=== PATIENT | male | born 1965 | race Caucasian/White ===

== ENCOUNTER 2016-05-02 00:28 | Emergency (ER) ==
[2016-05-02 00:41] VITALS: BP 180/80; TEMP 98.4; BMI 29.5
[2016-05-02] MEDS ORDERED: PHENERGAN 25 MG/ML VIAL IM STA (01:03)
[2016-05-02] MEDS ORDERED: DILAUDID 2 MG/ML SYRINGE IM STA (01:03)
[2016-05-02] MEDS ORDERED: SODIUM CHLORIDE 1,000 ML IV STA (01:04)
[2016-05-02] MEDS ORDERED: DILAUDID 1 MG/ML SYRINGE IVP PRN (01:15)
[2016-05-02] MEDS ORDERED: PHENERGAN 25 MG/ML VIAL 25 MG in SODIUM CHLORIDE 50 ML IV STA (01:16)
[2016-05-02] MEDS ORDERED: PHENERGAN 25 MG/ML VIAL ONE (01:22)
[2016-05-02] MEDS ORDERED: DILAUDID 1 MG/ML SYRINGE ONE ×2 (01:28→02:59)
[2016-05-02 01:34] LABS: ANION GAP 18.8; BUN/CREATININE RATIO 8.28; CALCIUM 9.9 mg/dL (8.2-10.2); CREATININE 1.57 mg/dL (0.60-1.10); POTASSIUM 3.8 mmol/L (3.5-5.1)
--- NOTE | 2016-05-02 02:42 | CT ---
EXAM: CT scan abdomen pelvis with contrast HISTORY: Trauma COMPARISON: None. FINDINGS: Contiguous axial images obtained from lung bases to the symphysis pubis following unevent ful administration intravenous contrast utilizing 3-mm collimation. Sagittal and coronal reconstruc tions were imaged and reviewed.. The visualized lung bases are clear. The gallbladder is fluid fabio led without cholelithiasis. Mild fatty infiltration is noted throughout the liver. The pancreas, s pleen and adrenal glands have normal enhanced CT appearance. The kidneys excrete contrast normal fa shion bilaterally. Atherosclerotic changes are seen involving the aorta without evidence of aneurys m. There is normal appendix. There is umbilical hernia containing only fat. There is minimal diver ticulosis without diverticulitis. The prostate gland is normal in size. There is no evidence of fr ee fluid. Review of bone windows reveals no evidence of lytic or blastic lesions. There is mild lum bar levoscoliosis. IMPRESSION: Fatty liver. Umbilical hernia containing only fat. Minimal diverticulosis without diverticulitis. ASVD without aneurysm. No acute findings.
--- NOTE | 2016-05-02 02:48 | CT ---
EXAM: CT scan thorax without contrast HISTORY: Trauma COMPARISON: None. FINDINGS: Contiguous axial images obtained through the thorax without contrast utilizing 5-mm colli mation. Sagittal and coronal reconstructions were imaged and reviewed. The thoracic inlet is unrema rkable. There are subcentimeter pretracheal lymph nodes. The heart is normal in size without perica rdial effusion.. The lungs are clear bilaterally.. Bone windows reveals no evidence of lytic or bl astic lesions. There are ventral spondylitic changes seen within the thoracic spine. IMPRESSION: No acute intrathoracic findings.
--- NOTE | 2016-05-02 03:00 | ED.PDOC ---
General ED Provider: Dr. VIKAS NORTON-ER Chief Complaint: Chest Wall Injury/Pain Stated Complaint: i was moving a fridge and it fell on my chest Time Seen by Physician: 00:30 Mode of Arrival: Wheelchair Information Source: Patient Exam Limitations: No limitations Nursing and Triage Documentation Reviewed and Agree: Yes Musculoskeletal Complaint Exam - Back Pain Complaint/Exam Mechanism of Injury: Reports: Trauma Onset/Duration: 2hrs Symptoms Are: Still present Timing: Constant Episodes Lasting: Hours Initial Severity: Mild Current Severity: Mild Location: Reports: Discrete (right chest wall) Character: Reports: Dull, Aching Aggravating: Reports: Movements, Lifting Alleviating: Reports: Position Associated Signs and Symptoms: Denies: Swelling, Redness, Bruising, Fever, Weakness, Numbness, Tingling, Abdominal pain, Flank pain, Bladder incontinence, Bowel incontinence, Weight loss, Pain with weight bearing Cauda Equina Risk Factors: Reports: None Epidural Abcess Risk Factors: Reports: None Related Surgical History: Reports: None Focal Tenderness: Yes Paraspinal Muscle Tenderness: No Paraspinal Muscle Spasm: No Scoliosis: No Lordosis: No Kyphosis: No SLR Test: Right Negative, Left Negative Hip Motion Testing Pain: Right Negative, Left Negative Focal Weakness: Present: None Focal Sensory Loss: Present: None Gait: Present: Normal Differential Diagnoses: Other Review of Systems - Review Of Systems Constitutional: Reports: No symptoms Eyes: Reports: No symptoms Ears, Nose, Mouth, Throat: Reports: No symptoms Respiratory: Reports: No symptoms Cardiac: Reports: Chest pain (chest wall pain) GI: Reports: No symptoms : Reports: No symptoms Musculoskeletal: Reports: No symptoms Skin: Reports: No symptoms Neurological: Reports: No symptoms Endocrine: Reports: No symptoms Hematologic/Lymphatic: Reports: No symptoms All Other Systems: Reviewed and Negative Past Medical History - Past Medical History Endocrine: Reports: Unknown Cardiovascular: Reports: Unknown Respiratory: Reports: Unknown Hematological: Reports: Unknown Gastrointestinal: Reports: Unknown Genitourinary: Reports: Unknown Neuro/Psych: Reports: Unknown Musculoskeletal: Reports: Unknown Cancer: Reports: Unknown - Surgical History General Surgical History: Reports: Unknown - Family History Family History: Reports: Unknown - Social History Smoking Status: Current every day smoker Hx Substance Use: No Alcohol Screening: None - Immunizations Tetanus Shot up to Date: Yes Physical Exam - Physical Exam Appearance: Well-appearing, No pain distress, Well-nourished Pain Distress: Moderate Eyes: DELPHINE, EOMI, Conjunctiva clear ENT: Ears normal, Nose normal, Oropharynx normal Neck: Supple Respiratory: Airway patent, Breath sounds clear, Breath sounds equal, Respirations nonlabored Cardiovascular: RRR, Pulses normal, No rub, No murmur GI/: Soft Musculoskeletal: Normal strength Skin: Warm, Dry, Normal color Neurological: Sensation intact, Motor intact, Reflexes intact, Cranial nerves intact, Alert, Oriented Psychiatric: Affect appropriate Interpretation - Radiology Interpretation Radiology Interpretation By: Radiologist Radiology Results: Negative Exam Interpreted: CT Scan Critical Care Note - Critical Care Note Total Time (mins): 0 Course - Course Hematology/Chemistry: 05/02/16 01:15 Orders, Labs, Meds: Lab Review 05/02/16 01:15 Sodium 140 Potassium 3.8 Chloride 106 Carbon Dioxide 19 L Anion Gap 18.8 BUN 13 Creatinine 1.57 H Estimated GFR (MDRD) 47.00 BUN/Creatinine Ratio 8.28 Glucose 80 Calcium 9.9 Orders Category Date Time Status NPO REMINDER: IMAGING ONCE CARE 05/02/16 01:04 Completed IV [ED IV/MEDIPORT/POWERPORT] .ONCE EMERGENCY 05/02/16 01:03 Active BMP [BASIC METABOLIC PANEL] Stat LAB 05/02/16 01:15 Completed 0.9 % Sodium Chloride [Saline Flush] MEDS 05/02/16 01:03 Ordered 1 syr IVF PRN PRN Hydromorphone HCl [Dilaudid 1 mg/ml Syringe] MEDS 05/02/16 01:15 Ordered 1 mg IVP Q1HR PRN Promethazine HCl [Phenergan 25 mg/ml Vial] MEDS 05/02/16 01:22 Discontinued 25 mg .ROUTE .STK-MED ONE Promethazine HCl [Phenergan 25 mg/ml Vial] 25 mg MEDS 05/02/16 01:16 Discontinued 0.9 % Sodium Chloride [Sodium Chloride] 50 ml IV ONCE Sodium Chloride 0.9% [Sodium Chloride] 1,000 ml MEDS 05/02/16 01:04 Active IV 100 mls/hr CT ABDOMEN/PELVIS W CONTRAST Stat RADS 05/02/16 01:[address] CHEST W/O CONTRAST Stat RADS 05/02/16 01:04 Completed Medications Generic Name Dose Route Start Last Admin Trade Name Freq PRN Reason Stop Dose Admin Hydromorphone HCl 1 mg 05/02/16 01:15 05/02/16 01:34 Dilaudid 1 Mg/Ml Syringe IVP 1 mg Q1HR PRN Administration MODERATE PAIN Sodium Chloride 1,000 mls @ 100 mls/hr 05/02/16 01:04 05/02/16 01:34 Sodium Chloride IV 05/02/16 11:03 100 mls/hr .Q10H STA Administration Sodium Chloride 1 syr 05/02/16 01:03 05/02/16 01:34 Saline Flush IVF 1 syr PRN PRN Administration To flush IV Discontinued Medications Generic Name Dose Route Start Last Admin Trade Name Freq PRN Reason Stop Dose Admin Promethazine HCl 25 mg/ Sodium 51 mls @ 75 mls/hr 05/02/16 01:16 05/02/16 01: 34 Chloride IV 05/02/16 01:56 75 mls/hr ONCE STA Administration Vital Signs: Temp Pulse Resp BP Pulse Ox 05/02/16 00:29 98.4 F 94 H 20 180/80 H 96 Departure - Departure Time of Disposition: 03:00 Disposition: HOME SELF-CARE Discharge Problem: Chest wall pain Instructions: Chest Wall Pain (ED) Condition: Good Pt referred to PMD for follow-up: Yes Additional Instructions: norco 7.5mg q 4hrs prn pain #15--f/u wtih pcp Allergies/Adverse Reactions: Allergies divalproex sodium [From Depakote] Adverse Reaction (Verified 05/27/13 23:06) ketorolac [From Toradol] Adverse Reaction (Verified 05/02/16 00:40) Vomiting pentazocine lactate [From Talwin] Adverse Reaction (Verified 05/27/13 23:06) sumatriptan [From Imitrex] Adverse Reaction (Verified 05/27/13 23:06) sumatriptan succinate [From Imitrex] Adverse Reaction (Verified 05/27/13 23:06) varenicline tartrate [From Chantix] Adverse Reaction (Verified 05/27/13 23:06) Home Medications: Ambulatory Orders Bisoprolol Fumarate/Hctz [Bisoprolol-Hctz 10-6.25 mg Tab] 10 mg PO DAILY Clonidine HCl [Catapres] 0.1 mg PO DAILY 05/27/13 Fluoxetine HCl [Prozac] 20 mg PO TID 05/27/13 Omeprazole [Prilosec] 20 mg PO QDAC 05/27/13 Pravastatin Sodium 10 mg PO DAILY 05/02/16 Tamsulosin HCl [Flomax] 0.4 mg PO DAILY 05/02/16 Disposition Discussed With: Patient
== END 2016-05-02 03:10 | disposition home or self-care (01) ==
LOC: ED 00:28
DX: S29.9XXA Unspecified injury of thorax, initial encounter (principal); R07.89 Other chest pain; F17.210 Nicotine dependence, cigarettes, uncomplicated; W20.8XXA Other cause of strike by thrown, projected or falling object, initial encounter; Z79.899 Other long term (current) drug therapy
CPT/HCPCS: 36415; 80048; 96361; 96365; 96366; 96375; 99284

== ENCOUNTER 2016-05-08 23:47 | Emergency (ER) ==
[2016-05-08 23:47] VITALS: BMI 29.5
[2016-05-09 00:01] VITALS: TEMP 98.9
[2016-05-09] MEDS ORDERED: DEMEROL 50 MG/ML SYRINGE IM STA (00:10)
[2016-05-09] MEDS ORDERED: PHENERGAN 25 MG/ML VIAL 25 MG in SODIUM CHLORIDE 50 ML IV STA (00:10)
[2016-05-09] MEDS ORDERED: PHENERGAN 25 MG/ML VIAL 25 MG in SODIUM CHLORIDE 50 ML IM STA (00:16)
[2016-05-09] MEDS ORDERED: PHENERGAN 25 MG/ML VIAL ONE (00:19)
[2016-05-09] MEDS ORDERED: DILAUDID 1 MG/ML SYRINGE IM STA (01:03)
--- NOTE | 2016-05-09 01:06 | ED.PDOC ---
General ED Provider: Dr. ERIC BAPTISTE Chief Complaint: Back Pain Stated Complaint: Patient was seen recently in the ER after back and chest wall injury while carring a frigde. He had CT of chest and spine that was negative. He Return today with injury to the right chest wall after his dog jumped on him. He tied to go to work [place] the had been told. He states he is now out of his medications as of this morning. Time Seen by Physician: 23:55 Mode of Arrival: Walk-In Information Source: Patient Exam Limitations: No limitations Nursing and Triage Documentation Reviewed and Agree: Yes Musculoskeletal Complaint Exam - Back Pain Complaint/Exam Mechanism of Injury: Reports: Trauma Onset/Duration: 1 days ago Symptoms Are: Still present Timing: Constant Initial Severity: Moderate Current Severity: Severe Character: Reports: Throbbing Aggravating: Reports: Movements, Lifting, Bending Alleviating: Reports: None Associated Signs and Symptoms: Denies: Swelling, Redness, Bruising, Fever, Weakness, Numbness, Tingling, Abdominal pain, Flank pain, Bladder incontinence, Bowel incontinence, Weight loss, Pain with weight bearing TAD Risk Factors: Reports: None AAA Risk Factors: Reports: None Cauda Equina Risk Factors: Reports: None Review of Systems - Review Of Systems Constitutional: Reports: No symptoms Eyes: Reports: No symptoms Ears, Nose, Mouth, Throat: Reports: No symptoms Respiratory: Reports: No symptoms Cardiac: Reports: Chest pain (Left chest wall ) GI: Reports: No symptoms : Reports: No symptoms Musculoskeletal: Reports: Back pain Skin: Reports: No symptoms Neurological: Reports: No symptoms Endocrine: Reports: No symptoms Hematologic/Lymphatic: Reports: No symptoms All Other Systems: Reviewed and Negative Past Medical History - Past Medical History Endocrine: Reports: Unknown Cardiovascular: Reports: Unknown Respiratory: Reports: Unknown Hematological: Reports: Unknown Gastrointestinal: Reports: Unknown Genitourinary: Reports: Unknown Neuro/Psych: Reports: Unknown Musculoskeletal: Reports: Unknown Cancer: Reports: Unknown - Surgical History General Surgical History: Reports: Unknown - Family History Family History: Reports: Unknown - Social History Smoking Status: Current every day smoker Hx Substance Use: No Alcohol Screening: None - Immunizations Tetanus Shot up to Date: Yes Physical Exam - Physical Exam Appearance: Ill-appearing, Obese Ill-appearing: Moderate Pain Distress: Severe Neck: Supple Respiratory: Airway patent, Breath sounds clear, Breath sounds equal, Respirations nonlabored Cardiovascular: RRR, Pulses normal, No rub, No murmur GI/: Soft, Nontender, No masses, Bowel sounds normal, No Organomegaly Musculoskeletal: Normal strength, ROM intact, No edema, No calf tenderness Skin: Warm, Dry, Normal color Neurological: Sensation intact, Motor intact, Reflexes intact, Cranial nerves intact, Alert, Oriented Psychiatric: Anxious Critical Care Note - Critical Care Note Total Time (mins): 0 Course - Course Orders, Labs, Meds: Orders Category Date Time Status Vital signs [ED VITAL SIGNS] .ONCE EMERGENCY 05/09/16 01:10 Active Hydromorphone HCl [Dilaudid 1 mg/ml Syringe] MEDS 05/09/16 01:03 Discontinued 1 mg IM ONCE STA Meperidine HCl/Pf [Demerol 50 mg/ml Syringe] MEDS 05/09/16 00:10 Discontinued 50 mg IM ONCE STA Promethazine HCl [Phenergan 25 mg/ml Vial] MEDS 05/09/16 00:19 Discontinued 25 mg .ROUTE .STK-MED ONE Promethazine HCl [Phenergan 25 mg/ml Vial] 25 mg MEDS 05/09/16 00:16 Discontinued 0.9 % Sodium Chloride [Sodium Chloride] 50 ml IM ONCE Promethazine HCl [Phenergan 25 mg/ml Vial] 25 mg MEDS 05/09/16 00:10 Discontinued 0.9 % Sodium Chloride [Sodium Chloride] 50 ml IV ONCE Medications Discontinued Medications Generic Name Dose Route Start Last Admin Trade Name Freq PRN Reason Stop Dose Admin Hydromorphone HCl 1 mg 05/09/16 01:03 05/09/16 01:23 Dilaudid 1 Mg/Ml Syringe IM 05/09/16 01:04 1 mg ONCE STA Administration Promethazine HCl 25 mg/ Sodium 51 mls @ 75 mls/hr 05/09/16 00:10 05/09/16 00: 32 Chloride IV 05/09/16 00:50 Not Given ONCE STA Promethazine HCl 25 mg/ Sodium 51 mls @ 75 mls/hr 05/09/16 00:16 05/09/16 00: 33 Chloride IM 05/09/16 00:50 Not Given ONCE STA Meperidine HCl 50 mg 05/09/16 00:10 05/09/16 00:27 Demerol 50 Mg/Ml Syringe IM 05/09/16 00:11 50 mg ONCE STA Administration Vital Signs: Temp Pulse Resp BP Pulse Ox 05/09/16 01:51 98.9 F 84 20 174/96 H 05/08/16 23:48 98.9 F 86 20 188/110 H 97 Departure - Departure Time of Disposition: :06 Disposition: HOME SELF-CARE Discharge Problem: Backache, Chest wall injury Instructions: Chest Wall Pain in Children (ED) Condition: Stable Pt referred to PMD for follow-up: Yes Additional Instructions: Follow up with PCP in 3 days Take medications as prescribed. Prescriptions: Hydrocodone/Acetaminophen [[place] 5-325 Tablet] 1 tab PO Q6HR PRN #12 tablet PRN Reason: PAIN Allergies/Adverse Reactions: Allergies divalproex sodium [From Depakote] Adverse Reaction (Verified 05/09/16 00:01) ketorolac [From Toradol] Adverse Reaction (Verified 05/09/16 00:01) Vomiting pentazocine lactate [From Talwin] Adverse Reaction (Verified 05/09/16 00:01) sumatriptan [From Imitrex] Adverse Reaction (Verified 05/09/16 00:01) sumatriptan succinate [From Imitrex] Adverse Reaction (Verified 05/09/16 00:01) varenicline tartrate [From Chantix] Adverse Reaction (Verified 05/09/16 00:01) Home Medications: Ambulatory Orders Bisoprolol Fumarate/Hctz [Bisoprolol-Hctz 10-6.25 mg Tab] 10 mg PO DAILY Clonidine HCl [Catapres] 0.1 mg PO DAILY 05/27/13 Fluoxetine HCl [Prozac] 20 mg PO TID 05/27/13 Omeprazole [Prilosec] 20 mg PO QDAC 05/27/13 Pravastatin Sodium 10 mg PO DAILY 05/02/16 Tamsulosin HCl [Flomax] 0.4 mg PO DAILY 05/02/16 Hydrocodone/Acetaminophen [[place] 5-325 Tablet] 1 tab PO Q6HR PRN #12 tablet 04/26
[2016-05-09 01:52] VITALS: BP 174/96
== END 2016-05-09 01:51 | disposition home or self-care (01) ==
LOC: ED 23:47
DX: S29.9XXA Unspecified injury of thorax, initial encounter (principal); M54.9 Dorsalgia, unspecified; W54.1XXA Struck by dog, initial encounter; F17.210 Nicotine dependence, cigarettes, uncomplicated
CPT/HCPCS: 96372; 99282

== ENCOUNTER 2016-07-30 20:51 | Emergency (ER) ==
[2016-07-30 20:56] VITALS: BP 143/105; TEMP 97.9; BMI 31.0
--- NOTE | 2016-07-30 21:47 | CT ---
EXAM: CT scan head without contrast. HISTORY: Fall COMPARISON: None. TECHNIQUE: Axial scans acquired 5 mm slice thicknesses. FINDINGS: There is no subdural hematoma or intracranial hemorrhage seen. There is no shift of midl ine structures. Duke-white matter differentiation is maintained. Ventricles are normal in size. T he paranasal sinuses and mastoid air cells appear clear. IMPRESSION: No acute intracranial finding. No intracranial hemorrhage, cranial fracture, mass or h ydrocephalus is seen.
--- NOTE | 2016-07-30 21:50 | ED.PDOC ---
General ED Provider: Dr. ERIC BAPTISTE Chief Complaint: Fall Stated Complaint: Patient states he fell out of a 10 foot height landing backwards. Thinks he lost conciousness not sure how long. Time Seen by Physician: 21:47 Mode of Arrival: Walk-In Information Source: Patient Exam Limitations: No limitations Primary Care Provider: GIDEON GLEZ Nursing and Triage Documentation Reviewed and Agree: Yes Review of Systems - Review Of Systems Constitutional: Reports: No symptoms Eyes: Reports: No symptoms Ears, Nose, Mouth, Throat: Reports: No symptoms Respiratory: Reports: No symptoms Cardiac: Reports: No symptoms GI: Reports: No symptoms : Reports: No symptoms Musculoskeletal: Reports: Muscle pain, Neck pain Skin: Reports: Rash (all over for two weeks after exposure to tree sap. ) Neurological: Reports: Anxiety, Headache Endocrine: Reports: No symptoms Hematologic/Lymphatic: Reports: No symptoms All Other Systems: Reviewed and Negative Past Medical History - Past Medical History Previously Healthy: Yes Endocrine: Reports: Unknown Cardiovascular: Reports: Unknown Respiratory: Reports: Unknown Hematological: Reports: Unknown Gastrointestinal: Reports: Unknown Genitourinary: Reports: Unknown Neuro/Psych: Reports: Unknown Musculoskeletal: Reports: Unknown Cancer: Reports: Unknown - Surgical History General Surgical History: Reports: Unknown - Family History Family History: Reports: Unknown - Social History Smoking Status: Current every day smoker Hx Substance Use: No Alcohol Screening: None Physical Exam - Physical Exam Appearance: Ill-appearing, No pain distress, Well-nourished Pain Distress: Moderate Eyes: DELPHINE, EOMI, Conjunctiva clear ENT: Ears normal, Nose normal, Oropharynx normal Respiratory: Airway patent, Breath sounds clear, Breath sounds equal, Respirations nonlabored Cardiovascular: RRR, Pulses normal, No rub, No murmur GI/: Soft, Nontender, No masses, Bowel sounds normal, No Organomegaly Musculoskeletal: Normal strength, ROM intact, No edema, No calf tenderness Skin: Warm, Dry, Normal color Neurological: Sensation intact, Motor intact, Reflexes intact, Cranial nerves intact, Alert, Oriented Psychiatric: Affect appropriate, Mood appropriate Interpretation - Radiology Interpretation Radiology Interpretation By: Radiologist Radiology Results: Negative Exam Interpreted: CT Scan (head and C spine ) Critical Care Note - Critical Care Note Total Time (mins): 0 Course - Course Orders, Labs, Meds: Orders Category Date Time Status CT CERVICAL SPINE W/O CONTRAST Stat RADS 07/30/16 21:[address] HEAD W/O CONTRAST Stat RADS 07/30/16 21:11 Taken Vital Signs: Temp Pulse Resp BP Pulse Ox 07/30/16 20:51 97.9 F 82 18 143/105 H 97 Departure - Departure Time of Disposition: 22:26 Disposition: HOME SELF-CARE Discharge Problem: Back muscle spasm, Urticaria Closed head injury with concussion Qualifiers: Encounter type: initial encounter Loss of consciousness presence/duration: with LOC of 30 min or less Qualifier Code: (S06.0X1A) Concussion with loss of consciousness of 30 minutes or less, initial encounter Instructions: Cervical Strain (ED), Urticaria (ED) Condition: Stable Pt referred to PMD for follow-up: Yes Additional Instructions: Take medications as prescribed Follow up with PC in 3 days Return if worse. Prescriptions: Hydrocodone/Acetaminophen [[place] 5-325 Tablet] 1 tab PO Q6HR PRN #12 tablet PRN Reason: PAIN Methylprednisolone [Medrol Dosepak] 4 mg PO DIRECTED #1 pkg Allergies/Adverse Reactions: Allergies divalproex sodium [From Depakote] Adverse Reaction (Verified 07/30/16 20:56) ketorolac [From Toradol] Adverse Reaction (Verified 07/30/16 20:56) Vomiting pentazocine lactate [From Talwin] Adverse Reaction (Verified 07/30/16 20:56) sumatriptan [From Imitrex] Adverse Reaction (Verified 07/30/16 20:56) sumatriptan succinate [From Imitrex] Adverse Reaction (Verified 07/30/16 20:56) varenicline tartrate [From Chantix] Adverse Reaction (Verified 07/30/16 20:56) Home Medications: Ambulatory Orders Clonidine HCl [Catapres] 0.1 mg PO DAILY 05/27/13 Fluoxetine HCl [Prozac] 20 mg PO TID 05/27/13 Omeprazole [Prilosec] 20 mg PO QDAC 05/27/13 Pravastatin Sodium 10 mg PO DAILY 05/02/16 Tamsulosin HCl [Flomax] 0.4 mg PO DAILY 05/02/16 Hydrocodone/Acetaminophen [[place] 5-325 Tablet] 1 tab PO Q6HR PRN #12 tablet Ibuprofen [Motrin Ib] 800 mg PO DAILY 07/30/16 Methylprednisolone [Medrol Dosepak] 4 mg PO DIRECTED #1 pkg 07/30/16 Transfer Form Completed: Yes Disposition Discussed With: Patient
[2016-07-30] MEDS ORDERED: ZOFRAN 4 MG/2 ML IM STA (21:51)
[2016-07-30] MEDS ORDERED: MORPHINE 4 MG/ML SYRINGE IM STA (21:51)
--- NOTE | 2016-07-30 21:56 | CT ---
EXAM: CT of the cervical spine without contrast. HISTORY: Fall with neck pain. PROCEDURE: Contiguous axial CT images of the cervical spine without contrast with coronal and sagit brennan reformats. FINDINGS: There is normal alignment of the cervical vertebral bodies and facets. The vertebral body heights are maintained. There is multilevel disc space narrowing. There are posterior osteophytes at multiple levels of the cervical spine. There is multilevel facet arthropathy. The C1-2 relatio nship is maintained. No prevertebral soft tissue abnormality. Impression: No evidence of fracture. Normal alignment of the cervical spine with degenerative changes as described.
[2016-07-30] MEDS ORDERED: SOLU-MEDROL 125 MG IM STA (21:59)
[2016-07-30] MEDS ORDERED: BENADRYL PO STA (21:59)
== END 2016-07-30 22:40 | disposition home or self-care (01) ==
LOC: ED 20:51
DX: S06.0X1A Concussion with loss of consciousness of 30 minutes or less, initial encounter (principal); M62.830 Muscle spasm of back; S16.1XXA Strain of muscle, fascia and tendon at neck level, initial encounter; L50.9 Urticaria, unspecified; W17.89XA Other fall from one level to another, initial encounter; F17.210 Nicotine dependence, cigarettes, uncomplicated; Z79.899 Other long term (current) drug therapy
CPT/HCPCS: 96372; 99283

== ENCOUNTER 2016-09-07 20:17 | Emergency (ER) ==
[2016-09-07 20:31] VITALS: BP 138/95; TEMP 99.6; BMI 29.5
[2016-09-07] MEDS ORDERED: PHENERGAN 25 MG/ML VIAL 25 MG in SODIUM CHLORIDE 50 ML IV STA (21:03)
[2016-09-07] MEDS ORDERED: DILAUDID 1 MG/ML SYRINGE IM STA (21:03)
[2016-09-07] MEDS ORDERED: PHENERGAN 25 MG/ML VIAL ONE (21:06)
--- NOTE | 2016-09-07 21:06 | ED.PDOC ---
General ED Provider: Dr. ERIC BAPTISTE Chief Complaint: Back Pain Stated Complaint: Sharon is a 51 year old female who come to the ER with back pain after a washer he was carring fell jerking his back. Time Seen by Physician: 21:05 Mode of Arrival: Walk-In Information Source: Patient Exam Limitations: No limitations Primary Care Provider: GIDEON GLEZ Nursing and Triage Documentation Reviewed and Agree: Yes Musculoskeletal Complaint Exam - Back Pain Complaint/Exam Mechanism of Injury: Reports: Trauma (from lifting ) Onset/Duration: constant Symptoms Are: Still present Timing: Constant Initial Severity: Severe Current Severity: Severe Location: Reports: Diffuse Character: Reports: Aching, Throbbing, Spasmodic Aggravating: Reports: Movements, Lifting, Bending, Walking Alleviating: Reports: None Associated Signs and Symptoms: Denies: Swelling, Redness, Bruising, Fever, Weakness, Numbness, Tingling, Abdominal pain, Flank pain, Bladder incontinence, Bowel incontinence, Weight loss, Pain with weight bearing TAD Risk Factors: Reports: None AAA Risk Factors: Reports: None Cauda Equina Risk Factors: Reports: None Epidural Abcess Risk Factors: Reports: None Related Surgical History: Reports: None Focal Tenderness: No Paraspinal Muscle Tenderness: Yes Paraspinal Muscle Spasm: Yes Scoliosis: No Lordosis: No Kyphosis: No SLR Test: Right Negative, Left Negative Hip Motion Testing Pain: Right Negative, Left Negative Focal Weakness: Present: None Focal Sensory Loss: Present: None Gait: Present: Abnormal Back Picture: 1 - pain and spasms Differential Diagnoses: Strain, Sprain Review of Systems - Review Of Systems Constitutional: Reports: No symptoms Eyes: Reports: No symptoms Ears, Nose, Mouth, Throat: Reports: No symptoms Respiratory: Reports: No symptoms Cardiac: Reports: No symptoms GI: Reports: No symptoms : Reports: No symptoms Musculoskeletal: Reports: Back pain Skin: Reports: No symptoms Neurological: Reports: No symptoms Endocrine: Reports: No symptoms Hematologic/Lymphatic: Reports: No symptoms All Other Systems: Reviewed and Negative Past Medical History - Past Medical History Previously Healthy: Yes Endocrine: Reports: Dyslipidemia Cardiovascular: Reports: Hypertension Respiratory: Reports: None Hematological: Reports: None Gastrointestinal: Reports: GERD Genitourinary: Reports: None Neuro/Psych: Reports: Migraine, Depression Musculoskeletal: Reports: Arthritis, Back Pain Cancer: Reports: None - Surgical History General Surgical History: Reports: Orthopedic (Tear in right knee Repaired), Other (Pneumothorax , Ganglion cyst removal ) - Family History Family History: Reports: Unknown - Social History Smoking Status: Current every day smoker, Heavy tobacco smoker Hx Substance Use: No Alcohol Screening: None - Immunizations Tetanus Shot up to Date: Yes Physical Exam - Physical Exam Appearance: Ill-appearing Ill-appearing: Severe Pain Distress: Severe Neck: Supple Respiratory: Airway patent, Breath sounds clear Cardiovascular: Tachycardia GI/: Soft, Nontender, No masses, Bowel sounds normal, No Organomegaly Musculoskeletal: Limited ROM Skin: Warm Neurological: Alert, Oriented Psychiatric: Anxious Critical Care Note - Critical Care Note Total Time (mins): 0 Course - Course Orders, Labs, Meds: Orders Category Date Time Status Hydromorphone HCl [Dilaudid 1 mg/ml Syringe] MEDS 09/07/16 21:03 Discontinued 1 mg IM ONCE STA Promethazine HCl [Phenergan 25 mg/ml Vial] MEDS 09/07/16 21:06 Discontinued 25 mg .ROUTE .STK-MED ONE Promethazine HCl [Phenergan 25 mg/ml Vial] 25 mg MEDS 09/07/16 21:03 Discontinued 0.9 % Sodium Chloride [Sodium Chloride] 50 ml IV ONCE Medications Discontinued Medications Generic Name Dose Route Start Last Admin Trade Name Freq PRN Reason Stop Dose Admin Hydromorphone HCl 1 mg 09/07/16 21:03 09/07/16 21:13 Dilaudid 1 Mg/Ml Syringe IM 09/07/16 21:04 1 mg ONCE STA Administration Promethazine HCl 25 mg/ Sodium 51 mls @ 75 mls/hr 09/07/16 21:03 09/07/16 21: 14 Chloride IV 09/07/16 21:43 Not Given ONCE STA Vital Signs: Temp Pulse Resp BP Pulse Ox 09/07/16 20:18 99.6 F 106 H 18 138/95 H 99 Departure - Departure Time of Disposition: 21:50 Disposition: HOME SELF-CARE Discharge Problem: Low back sprain Instructions: Lower Back Exercises (ED), Low Back Strain (ED) Condition: Fair Pt referred to PMD for follow-up: Yes (3 days ) Additional Instructions: Rest Take pain medications as needed Follow up with PC in 3 days Prescriptions: Hydrocodone/Acetaminophen [[place] 5-325 Tablet] 1 tab PO Q6HR PRN #12 tablet PRN Reason: PAIN Allergies/Adverse Reactions: Allergies divalproex sodium [From Depakote] Adverse Reaction (Verified 09/07/16 20:25) ketorolac [From Toradol] Adverse Reaction (Verified 09/07/16 20:25) Vomiting pentazocine lactate [From Talwin] Adverse Reaction (Verified 09/07/16 20:25) sumatriptan [From Imitrex] Adverse Reaction (Verified 09/07/16 20:25) sumatriptan succinate [From Imitrex] Adverse Reaction (Verified 09/07/16 20:25) varenicline tartrate [From Chantix] Adverse Reaction (Verified 09/07/16 20:25) Home Medications: Ambulatory Orders Clonidine HCl [Catapres] 0.1 mg PO DAILY 05/27/13 Fluoxetine HCl [Prozac] 40 mg PO TID 05/27/13 Omeprazole [Prilosec] 20 mg PO QDAC 05/27/13 Pravastatin Sodium 10 mg PO DAILY 05/02/16 Tamsulosin HCl [Flomax] 0.4 mg PO DAILY 05/02/16 Ibuprofen [Motrin Ib] 800 mg PO DAILY 07/30/16 Buspirone HCl 10 mg PO DAILY 09/07/16 Hydrocodone/Acetaminophen [[place] 5-325 Tablet] 1 tab PO Q6HR PRN #12 tablet 03/26 Disposition Discussed With: Patient
== END 2016-09-07 21:55 | disposition home or self-care (01) ==
LOC: ED 20:17
DX: S33.5XXA Sprain of ligaments of lumbar spine, initial encounter (principal); X50.1XXA Overexertion from prolonged static or awkward postures, initial encounter; F17.210 Nicotine dependence, cigarettes, uncomplicated
CPT/HCPCS: 96372; 99283

== ENCOUNTER 2016-10-23 22:11 | Emergency (ER) ==
[2016-10-23 22:20] VITALS: BP 142/78; TEMP 98.2; BMI 31.0
--- NOTE | 2016-10-23 22:29 | ED.PDOC ---
General ED Provider: Dr. ERIC BAPTISTE Chief Complaint: Shoulder Pain/Injury Stated Complaint: sharp pain in left shoulder, made worse by movement Time Seen by Physician: 22:28 Mode of Arrival: Walk-In Information Source: Patient Exam Limitations: No limitations Primary Care Provider: MATHEUS DOWD Nursing and Triage Documentation Reviewed and Agree: Yes Musculoskeletal Complaint Exam - Shoulder Pain Complaint/Exam Mechanism of Injury: Reports: Trauma (lifting wood ) Onset/Duration: one day Symptoms Are: Still present Timing: Constant Initial Severity: Moderate Current Severity: Moderate Location: Reports: Diffuse Character: Reports: Aching, Throbbing Alleviating: Reports: Rest Aggravating: Reports: Movement, Lifting, External rotation Associated Signs and Symptoms: Denies: Swelling, Redness, Bruising, Fever, Weakness, Numbness, Tingling Related History: Reports: Dominant hand right. Denies: Similar episode, Occupational injury Non-Orthopedic Risk Factors: Reports: None DVT Risk Factors: Reports: None Septic Arthritis Risk Factors: Reports: None Related Surgical History: Reports: None Tenderness: Present: Rotator cuff muscles Limited Range of Motion: Present: Adduction, Extension, Internal rotation, External rotation Differential Diagnoses: AC Seperation, Arthritis, Rotator Cuff Injury, Sprain, Strain Review of Systems - Review Of Systems Constitutional: Reports: No symptoms Eyes: Reports: No symptoms Ears, Nose, Mouth, Throat: Reports: No symptoms Respiratory: Reports: No symptoms Cardiac: Reports: No symptoms GI: Reports: No symptoms : Reports: Burning, Pain Musculoskeletal: Reports: Joint pain Skin: Reports: No symptoms Neurological: Reports: Anxiety Endocrine: Reports: No symptoms Hematologic/Lymphatic: Reports: No symptoms All Other Systems: Reviewed and Negative Past Medical History - Past Medical History Previously Healthy: Yes Endocrine: Reports: Dyslipidemia Cardiovascular: Reports: Hypertension Respiratory: Reports: None Hematological: Reports: None Gastrointestinal: Reports: GERD Genitourinary: Reports: None Neuro/Psych: Reports: Migraine, Depression Musculoskeletal: Reports: Arthritis, Back Pain Cancer: Reports: None - Surgical History General Surgical History: Reports: Orthopedic (Tear in right knee Repaired), Other (Pneumothorax , Ganglion cyst removal ) - Family History Family History: Reports: Unknown - Social History Smoking Status: Current every day smoker Hx Substance Use: No Alcohol Screening: None Physical Exam - Physical Exam Appearance: Ill-appearing, Obese Ill-appearing: Mild Pain Distress: Severe Neck: Supple Respiratory: Airway patent, Breath sounds clear, Breath sounds equal, Respirations nonlabored Cardiovascular: RRR, Pulses normal, No rub, No murmur GI/: Soft, Nontender, No masses, Bowel sounds normal, No Organomegaly Musculoskeletal: Normal strength, No edema, No calf tenderness, Limited ROM ( left shoulder ) Skin: Warm, Dry, Normal color Neurological: Sensation intact, Motor intact, Reflexes intact, Cranial nerves intact, Alert, Oriented Psychiatric: Anxious Interpretation - Radiology Interpretation Radiology Interpretation By: ED Physician Radiology Results: No acute changes Exam Interpreted: Other (left shoulder x ray negative) Critical Care Note - Critical Care Note Total Time (mins): 0 Course - Course Orders, Labs, Meds: Lab Review 10/23/16 22:50 Urine Color Yellow Urine Clarity Clear Urine pH 7.0 Ur Specific [place] 1.010 Urine Protein Negative Urine Glucose (UA) Negative Urine Ketones Negative Urine Blood 2+ Urine Nitrite Negative Urine Bilirubin Negative Urine Urobilinogen 1.0 Ur Leukocyte Esterase Trace Urine Microscopic RBC 5-10 Urine Microscopic WBC 0-2 Ur Squamous Epith Cells 0-2 Urine Bacteria 1+ Urine Opiates Screen Negative Ur Oxycodone Screen Negative Urine Methadone Screen Negative Ur Propoxyphene Screen Negative Ur Barbiturates Screen Negative U Tricyclic Antidepress Positive Ur Phencyclidine Scrn Negative Ur Amphetamine Screen Negative U Methamphetamines Scrn Negative U Benzodiazepines Scrn Negative Urine Cocaine Screen Negative U Cannabinoids Screen Negative Orders Category Date Time Status DRUG SCREEN, URINE, RAPID Stat LAB 10/23/16 22:50 Completed URINALYSIS C & S IF INDICATED Stat LAB 10/23/16 22:50 Completed URINE CULTURE Stat LAB 10/23/16 22:50 Received Hydromorphone HCl [Dilaudid 1 mg/ml Syringe] MEDS 10/23/16 22:59 Discontinued 1 mg IM ONCE STA Phenazopyridine HCl [Pyridium] MEDS 10/23/16 23:40 Discontinued 100 mg PO ONCE STA CT ABD/PEL WO RENAL STONE PROT Stat RADS 10/23/16 22:58 Completed SHOULDER, LEFT MIN 2V Stat RADS 10/23/16 22:27 Completed Medications Discontinued Medications Generic Name Dose Route Start Last Admin Trade Name Freq PRN Reason Stop Dose Admin Hydromorphone HCl 1 mg 10/23/16 22:59 10/23/16 23:18 Dilaudid 1 Mg/Ml Syringe IM 10/23/16 23:00 1 mg ONCE STA Administration Phenazopyridine HCl 100 mg 10/23/16 23:40 10/23/16 23:45 Pyridium PO 10/23/16 23:41 100 mg ONCE STA Administration Vital Signs: Temp Pulse Resp BP Pulse Ox 10/23/16 22:13 98.2 F 93 H 18 142/78 H 96 Departure - Departure Time of Disposition: 23:25 Disposition: HOME SELF-CARE Discharge Problem: Sprain of shoulder, left Qualifiers: Encounter type: initial encounter Shoulder sprain type: rotator cuff capsule Qualifier Code: (S43.422A) Sprain of left rotator cuff capsule, initial encounter Instructions: Shoulder Sprain (ED) Condition: Fair Pt referred to PMD for follow-up: Yes Additional Instructions: Stop Doctor shopping. [place] Narcotic database shows you are getting Narcotics from multiple providers. Follow up with PCP in 3 days Prescriptions: Phenazopyridine HCl [Pyridium] 100 mg PO TID PRN #10 tablet PRN Reason: Urinary Burning. Sennosides [Senna] 8.6 mg PO BID #60 tablet Allergies/Adverse Reactions: Allergies divalproex sodium [From Depakote] Adverse Reaction (Verified 10/23/16 22:18) ketorolac [From Toradol] Adverse Reaction (Verified 10/23/16 22:18) Vomiting pentazocine lactate [From Talwin] Adverse Reaction (Verified 10/23/16 22:18) sumatriptan [From Imitrex] Adverse Reaction (Verified 10/23/16 22:18) sumatriptan succinate [From Imitrex] Adverse Reaction (Verified 10/23/16 22:18) varenicline tartrate [From Chantix] Adverse Reaction (Verified 10/23/16 22:18) Home Medications: Ambulatory Orders Clonidine HCl [Catapres] 0.1 mg PO DAILY 05/27/13 Fluoxetine HCl [Prozac] 40 mg PO TID 05/27/13 Omeprazole [Prilosec] 20 mg PO QDAC 05/27/13 Pravastatin Sodium 10 mg PO DAILY 05/02/16 Tamsulosin HCl [Flomax] 0.4 mg PO DAILY 05/02/16 Phenazopyridine HCl [Pyridium] 100 mg PO TID PRN #10 tablet 10/23/16 Sennosides [Senna] 8.6 mg PO BID #60 tablet 10/23/16 Disposition Discussed With: Patient, Family
--- NOTE | 2016-10-23 22:49 | DI ---
EXAM: Left shoulder, three views, 10/23/2016 HISTORY: Shoulder pain COMPARISON: None. FINDINGS / IMPRESSION: The glenohumeral and acromioclavicular joints align normally. There is no e vidence of fracture or dislocation. No acute post traumatic osseous abnormality.
[2016-10-23] MEDS ORDERED: DILAUDID 1 MG/ML SYRINGE IM STA (22:59)
[2016-10-23 23:07] LABS: COCAIN SCREEN,URINE NEGATIVE (NEGATIVE)
--- NOTE | 2016-10-23 23:22 | CT ---
EXAM: CT of the abdomen and pelvis without contrast. HISTORY: Pain with urination. History of kidney stones. PROCEDURE: Contiguous axial CT images of the abdomen and pelvis without contrast with coronal and s agittal reformats. FINDINGS: The liver, gallbladder, pancreas, spleen, adrenal glands and kidneys are normal in appeara nce. No nephrolithiasis, ureterolithiasis or hydronephrosis. The abdominal aorta is within normal limits in diameter. The appendix is normal in appearance. There is fecal stasis in the colon. No b owel obstruction. No free fluid or free air in the abdomen or pelvis. The bladder is adequately fabio led with no abnormality identified. The seminal vesicles and prostate gland are unremarkable. There are degenerative changes in the spine. The soft tissues are unremarkable. Impression: No nephrolithiasis, ureterolithiasis or hydronephrosis. Fecal stasis in the colon.
[2016-10-23 23:32] LABS: BILIRUBIN,URINE Negative (NEGATIVE); KETONES,URINE Negative (NEGATIVE); LEUKOCYTE ESTERASE ,URINE Trace (NEGATIVE); NITRITE,URINE Negative (NEGATIVE); PROTEIN,URINE Negative (NEGATIVE); URINE, BLOOD 2+ (NEGATIVE)
[2016-10-23 23:34] LABS: ADD URINE MICROSCOPIC YES
[2016-10-23] MEDS ORDERED: PYRIDIUM PO STA (23:40)
[2016-10-23 23:46] LABS: BACTERIA,URINE 1+ (NOT PRESENT)
== END 2016-10-23 23:46 | disposition home or self-care (01) ==
LOC: ED 22:11
DX: S43.422A Sprain of left rotator cuff capsule, initial encounter (principal); X50.0XXA Overexertion from strenuous movement or load, initial encounter; F17.210 Nicotine dependence, cigarettes, uncomplicated
CPT/HCPCS: 74176; 80306; 81001; 87086; 96372; 99283

== ENCOUNTER 2017-05-19 12:02 | Emergency (ER) ==
[2017-05-19 12:09] VITALS: BP 142/84; TEMP 97.6; BMI 31.8
[2017-05-19] MEDS ORDERED: TORADOL IM STA (12:31)
[2017-05-19] MEDS ORDERED: NORFLEX IM STA (12:31)
[2017-05-19] MEDS ORDERED: MORPHINE 2 MG/ML SYRINGE IM STA (12:32)
[2017-05-19] MEDS ORDERED: ZOFRAN 4 MG/2 ML IM STA (12:32)
--- NOTE | 2017-05-19 12:37 | ED.PDOC ---
General ED Provider: Dr. KINZA LESLIE Chief Complaint: Back Pain Stated Complaint: low back pain Time Seen by Physician: 12:00 (present july nahid pt was playing withgranson his pulled his lower back) Mode of Arrival: Walk-In Information Source: Patient Exam Limitations: No limitations Primary Care Provider: MATHEUS DOWD Nursing and Triage Documentation Reviewed and Agree: Yes Reviewed sepsis parameters & appropriate labs ordered?: Yes System Inflammatory Response Syndrome: Not Applicable Sepsis Protocol: For patient's 13 years and over: Temp is 96.8 and below OR 101 and greater Pulse >90 BPM Resp >20/minute Acutely Altered Mental Status Are patient's symptoms suggestive of a new infection, such as: -Pneumonia -Skin, Soft Tissue -Endocarditis -UTI -Bone, Joint Infection -Implantable Device -Acute Abdominal Infection -Wound Infection -Meningitis -Blood Stream Catheter Infection -Unknown System Inflammatory Response Syndrome: Not Applicable Review of Systems - Review Of Systems Constitutional: Reports: No symptoms Eyes: Reports: No symptoms Ears, Nose, Mouth, Throat: Reports: No symptoms Respiratory: Reports: No symptoms Cardiac: Reports: No symptoms GI: Reports: No symptoms : Reports: No symptoms Musculoskeletal: Reports: Back pain Skin: Reports: No symptoms Neurological: Reports: No symptoms Endocrine: Reports: No symptoms Hematologic/Lymphatic: Reports: No symptoms All Other Systems: Reviewed and Negative Past Medical History - Past Medical History Previously Healthy: Yes Endocrine: Reports: Dyslipidemia Cardiovascular: Reports: Hypertension Respiratory: Reports: None Hematological: Reports: None Gastrointestinal: Reports: GERD Genitourinary: Reports: None Neuro/Psych: Reports: Migraine, Depression Musculoskeletal: Reports: Arthritis, Back Pain Cancer: Reports: None - Surgical History General Surgical History: Reports: Orthopedic (Tear in right knee Repaired), Other (Pneumothorax , Ganglion cyst removal ) - Family History Family History: Reports: Unknown - Social History Smoking Status: Current every day smoker, Heavy tobacco smoker Hx Substance Use: No Alcohol Screening: None Physical Exam - Physical Exam Appearance: Well-appearing, No pain distress, Well-nourished Eyes: DELPHINE, EOMI, Conjunctiva clear ENT: Ears normal, Nose normal, Oropharynx normal Respiratory: Airway patent, Breath sounds clear, Breath sounds equal, Respirations nonlabored Cardiovascular: RRR, Pulses normal, No rub, No murmur GI/: Soft, Nontender, No masses, Bowel sounds normal, No Organomegaly Musculoskeletal: Normal strength, ROM intact, No edema, No calf tenderness Skin: Warm, Dry, Normal color Neurological: Sensation intact, Motor intact, Reflexes intact, Cranial nerves intact, Alert, Oriented Psychiatric: Affect appropriate, Mood appropriate Critical Care Note - Critical Care Note Total Time (mins): 0 Course - Course Orders, Labs, Meds: Orders Category Date Time Status Morphine Sulfate [Morphine 2 mg/ml Syringe] MEDS 05/19/17 12:32 Discontinued 2 mg IM ONCE STA Ondansetron HCl/Pf [Zofran 4 mg/2 ml] MEDS 05/19/17 12:32 Discontinued 4 mg IM ONCE STA Orphenadrine Citrate [Norflex] MEDS 05/19/17 12:31 Discontinued 60 mg IM ONCE STA Medications Discontinued Medications Generic Name Dose Route Start Last Admin Trade Name Branq PRN Reason Stop Dose Admin Morphine Sulfate 2 mg 05/19/17 12:32 Morphine 2 Mg/Ml Syringe IM 05/19/17 12:33 ONCE STA Ondansetron HCl 4 mg 05/19/17 12:32 Zofran 4 Mg/2 Ml IM 05/19/17 12:33 ONCE STA Orphenadrine Citrate 60 mg 05/19/17 12:31 Norflex IM 05/19/17 12:32 ONCE STA Vital Signs: Temp Pulse Resp BP Pulse Ox 05/19/17 12:02 97.6 F 107 H 20 142/84 H 97 Departure - Departure Time of Disposition: 12:36 Disposition: HOME SELF-CARE Discharge Problem: Backache Low back pain Qualifiers: Chronicity: acute Instructions: Back Pain (ED), Acute Low Back Pain (ED) Condition: Good Pt referred to PMD for follow-up: Yes IPMP verified?: No Additional Instructions: Please call your Family Physician as soon as possible to schedule a follow-up appointment. Allergies/Adverse Reactions: Allergies divalproex sodium [From Depakote] Adverse Reaction (Verified 05/19/17 12:11) ketorolac [From Toradol] Adverse Reaction (Verified 05/19/17 12:11) Vomiting pentazocine lactate [From Talwin] Adverse Reaction (Verified 05/19/17 12:11) sumatriptan [From Imitrex] Adverse Reaction (Verified 05/19/17 12:11) sumatriptan succinate [From Imitrex] Adverse Reaction (Verified 05/19/17 12:11) varenicline tartrate [From [employer]] Adverse Reaction (Verified 05/19/17 12:11) Home Medications: Ambulatory Orders Clonidine HCl [Catapres] 0.1 mg PO DAILY 05/27/13 Fluoxetine HCl [Prozac] 40 mg PO TID 05/27/13 Omeprazole [Prilosec] 20 mg PO QDAC 05/27/13 Pravastatin Sodium 10 mg PO DAILY 05/02/16 Tamsulosin HCl [Flomax] 0.4 mg PO DAILY 05/02/16 Phenazopyridine HCl [Pyridium] 100 mg PO TID PRN #10 tablet 10/23/16 Sennosides [Senna] 8.6 mg PO BID #60 tablet 10/23/16 Amlodipine Besylate [Norvasc] 2.5 mg PO BEDTIME 05/19/17
== END 2017-05-19 13:16 | disposition home or self-care (01) ==
LOC: ED 12:02
DX: M54.5 Low back pain (principal); F17.210 Nicotine dependence, cigarettes, uncomplicated
CPT/HCPCS: 96372; 99283

== ENCOUNTER 2018-03-07 15:20 | Emergency (ER) ==
[2018-03-07 15:46] VITALS: BP 151/94; TEMP 98.9; BMI 29.8
--- NOTE | 2018-03-07 17:08 | CT ---
EXAM: CT of the chest without contrast History: Chest pain and back pain. Comparison: Chest CT 05/30/2016 Technique: Multiplanar CT images through the thorax were obtained without the administration of IV c ontrast Findings: Heart size is normal. Great vessels are unremarkable. No pathologically enlarged thoracic lymph nodes. No consolidation. No pleural fluid and no pneumothorax. Mild emphysema. No lung mas ses or lung nodules. Within the visualized upper abdomen, no acute findings. No acute osseous abnormalities. Degenerativ e changes of the spine. Impression: 1. No acute intrathoracic process. 2. Mild emphysema
--- NOTE | 2018-03-07 17:12 | CT ---
EXAM: CT thoracic spine without contrast HISTORY: Mid back pain TECHNIQUE: Multislice helical with reformatted images COMPARISON: None FINDINGS: The intervertebral joint spaces are mildly narrowed diffusely. The vertebrae have normal height and alignment. No acute fracture or listhesis are appreciated. No suspicious osteolytic or o steoblastic lesions are appreciated. Segmental analysis: T1-T2: No significant disc herniation or central canal stenosis. The facets are hypertrophic with se rachel left and mild right neural from stenosis. T2-T3: No significant disc herniation or central canal stenosis. The facets are R hypertrophic with severe left and mild right neural from stenosis. T3-T4: No significant disc herniation or central canal stenosis. The facets hypertrophic with mild l eft neural foramen stenosis. T4-T5: No significant disc herniation or central canal stenosis. The facets are hypertrophic with mi ld bilateral for stenosis. T5-T6: No significant disc herniation or central canal stenosis. The facets are hypertrophic with mi ld to moderate right neural free stenosis. The left neural foramen is maintained. T6-T7: No significant disc herniation, central canal stenosis, or neural foramen stenosis. T7-T8: No significant disc herniation, central canal stenosis, or neural foramen stenosis. T8-T9: No significant disc herniation or central canal stenosis. The facets are hypertrophic with mo derate right and mild left neural foramen stenosis. T9-T10: No significant disc herniation. The left ligamentum flavum is calcified. The central canal diameter is moderately narrowed. The facets are hypertrophic with moderate left and mild right neura l foramen stenosis. T10-T11: No significant disc herniation or central canal stenosis. The facets are hypertrophic with moderate right and severe left neural foramen stenosis. T11-T12: No significant disc herniation or central canal stenosis. The facets are hypertrophic with mild bilateral neural foramen stenosis IMPRESSION: 1. Multilevel neural foramen stenosis. 2. Moderate central canal stenosis at T9-T10. 3. No acute fracture or listhesis. 4. Mild diffuse degenerative disc disease.
--- NOTE | 2018-03-07 17:15 | CT ---
EXAM: CT lumbar spine without contrast HISTORY: Low back pain TECHNIQUE: Multi-slice transaxial helical with coronal and sagittal reformatted views. COMPARISON: None FINDINGS: There are five lumbar-type vertebrae. There is anterolisthesis of L4 on L5 of 3.2 mm. The re is mild narrowing of the L4-L5 and L5-S1 intervertebral joint spaces. The more cephalad intervert ebral levels are maintained. A mild levoscoliosis has its apex at L4-L5. No fractures or lithesis ar e detected. The vertebrae have normal height. Segmental analysis: T12-L1: No significant disc herniation, central canal stenosis, or neural foramen stenosis. L1-L2: No significant disc herniation or central canal stenosis. The facets are hypertrophic with mi ld left neural foramen stenosis. The right neural foramen is maintained. L2-L3: No significant disc herniation or central canal stenosis. The facets are hypertrophic with mi ld bilateral neural foramen stenosis. L3-L4: A mild broad-based bulge effaces the thecal sac. The facets and ligamentum flavum are hypertr ophic. The central canal diameters mildly narrowed. The neural foramina are mildly narrowed bilater ally. L4-L5: The anterolisthesis is again noted. A broad-based bulge/pseudodisc bulge related to the anter olisthesis effaces the thecal sac and the central canal diameter is moderately narrowed. The facets and ligamentum flavum are hypertrophic with moderate bilateral joint stenosis. L5-S1: A mild disc protrusion is suggested without central canal stenosis. The facets are hypertroph ic with moderate left and mild to moderate right neural foramen stenosis. IMPRESSION: 1. Grade 1 anterolisthesis of L4 on L5. 2. No acute fracture or listhesis. 3. Multilevel central canal and neural foramen stenosis. 4. Mild degenerative disc disease at L4-L5 and L5-S1.
--- NOTE | 2018-03-07 17:16 | ED.PDOC ---
General ED Provider: Dr. VIKAS NORTON-ER Chief Complaint: Shoulder Pain/Injury Stated Complaint: i was lifting boxes at work --i hurt my back Time Seen by Physician: 16:30 Mode of Arrival: Walk-In Information Source: Patient Exam Limitations: No limitations Nursing and Triage Documentation Reviewed and Agree: Yes Does patient meet sepsis criteria?: No System Inflammatory Response Syndrome: Not Applicable Sepsis Protocol: For patient's 13 years and over: Temp is 96.8 and below OR 101 and greater Pulse >90 BPM Resp >20/minute Acutely Altered Mental Status Are patient's symptoms suggestive of a new infection, such as: -Pneumonia -Skin, Soft Tissue -Endocarditis -UTI -Bone, Joint Infection -Implantable Device -Acute Abdominal Infection -Wound Infection -Meningitis -Blood Stream Catheter Infection -Unknown Musculoskeletal Complaint Exam - Back Pain Complaint/Exam Mechanism of Injury: Reports: No known trauma Onset/Duration: today Symptoms Are: Still present Timing: Constant Initial Severity: Mild Current Severity: Moderate Location: Reports: Discrete Character: Reports: Dull, Aching, Throbbing Aggravating: Reports: Movements, Lifting, Walking Alleviating: Reports: None Associated Signs and Symptoms: Denies: Swelling, Redness, Bruising, Fever, Weakness, Numbness, Tingling, Abdominal pain, Flank pain, Bladder incontinence, Bowel incontinence, Weight loss, Pain with weight bearing Related History: Reports: Similar episode, Occupational injury, Previous back injury Focal Tenderness: Yes Paraspinal Muscle Tenderness: Yes Paraspinal Muscle Spasm: No Scoliosis: No Lordosis: No Kyphosis: No SLR Test: Right Negative, Left Negative Hip Motion Testing Pain: Right Negative, Left Negative Focal Weakness: Present: None Focal Sensory Loss: Present: None Gait: Present: Abnormal Differential Diagnoses: Herniated Disk, Strain, Sprain Review of Systems - Review Of Systems Constitutional: Reports: No symptoms Eyes: Reports: No symptoms Ears, Nose, Mouth, Throat: Reports: No symptoms Respiratory: Reports: No symptoms Cardiac: Reports: No symptoms GI: Reports: No symptoms : Reports: No symptoms Musculoskeletal: Reports: Back pain, Muscle pain Skin: Reports: No symptoms Neurological: Reports: No symptoms Endocrine: Reports: No symptoms Hematologic/Lymphatic: Reports: No symptoms All Other Systems: Reviewed and Negative Past Medical History - Past Medical History Previously Healthy: Yes Endocrine: Reports: Dyslipidemia Cardiovascular: Reports: Hypertension Respiratory: Reports: None Hematological: Reports: None Gastrointestinal: Reports: GERD Genitourinary: Reports: None Neuro/Psych: Reports: Migraine, Depression Musculoskeletal: Reports: Arthritis, Back Pain Cancer: Reports: None - Surgical History General Surgical History: Reports: Orthopedic (Tear in right knee Repaired), Other (Pneumothorax , Ganglion cyst removal ) - Family History Family History: Reports: Unknown - Social History Smoking Status: Current every day smoker, Heavy tobacco smoker Hx Substance Use: No Alcohol Screening: None Physical Exam - Physical Exam Appearance: Well-appearing, No pain distress, Well-nourished Pain Distress: Moderate Eyes: DELPHINE, EOMI, Conjunctiva clear ENT: Ears normal, Nose normal, Oropharynx normal Neck: Supple Respiratory: Airway patent, Breath sounds clear, Breath sounds equal, Respirations nonlabored Cardiovascular: RRR GI/: Soft, Nontender, No masses, Bowel sounds normal, No Organomegaly Musculoskeletal: Limited ROM Skin: Warm, Dry, Normal color Neurological: Sensation intact, Alert, Oriented Psychiatric: Affect appropriate, Mood appropriate Interpretation - Radiology Interpretation Radiology Interpretation By: Radiologist Radiology Results: Positive Exam Interpreted: CT Scan Critical Care Note - Critical Care Note Total Time (mins): 0 Course - Course Orders, Labs, Meds: Orders Category Date Time Status CT CHEST W/O CONTRAST Stat RADS 03/07/18 16:[address] LUMBAR SPINE W/O CONTRAST Stat RADS 03/07/18 16:[address] THORACIC SPINE W/O CONTRAST Stat RADS 03/07/18 16:39 Completed Vital Signs: Temp Pulse Resp BP Pulse Ox 03/07/18 15:21 98.9 F 89 20 151/94 H 98 Departure - Departure Time of Disposition: 17:20 Disposition: HOME SELF-CARE Discharge Problem: Low back pain Qualifiers: Chronicity: acute Back pain laterality: unspecified Sciatica presence: without sciatica Qualified Code(s): M54.5 - Low back pain Instructions: Acute Low Back Pain (ED) Condition: Good Pt referred to PMD for follow-up: Yes IPMP verified?: No Additional Instructions: norco 7.5mg q 4hrsd prn pain #10--heat alt ice--f/u with pcp Allergies/Adverse Reactions: Allergies divalproex sodium [From Depakote] Adverse Reaction (Verified 03/07/18 15:31) ketorolac [From Toradol] Adverse Reaction (Verified 03/07/18 15:31) Vomiting pentazocine lactate [From Talwin] Adverse Reaction (Verified 03/07/18 15:31) sumatriptan [From Imitrex] Adverse Reaction (Verified 03/07/18 15:31) sumatriptan succinate [From Imitrex] Adverse Reaction (Verified 03/07/18 15:31) varenicline tartrate [From Chantix] Adverse Reaction (Verified 03/07/18 15:31) Home Medications: Ambulatory Orders Clonidine HCl [Catapres] 0.1 mg PO DAILY 05/27/13 Fluoxetine HCl [Prozac] 40 mg PO TID 05/27/13 Omeprazole [Prilosec] 20 mg PO QDAC 05/27/13 Pravastatin Sodium 10 mg PO DAILY 05/02/16 Tamsulosin HCl [Flomax] 0.4 mg PO DAILY 05/02/16 Amlodipine Besylate [Norvasc] 2.5 mg PO BEDTIME 05/19/17 Ibuprofen 800 mg PO 2-3XD PRN 03/07/18 Disposition Discussed With: Patient, Family
== END 2018-03-07 17:25 | disposition home or self-care (01) ==
LOC: ED 15:20
DX: M25.519 Pain in unspecified shoulder (principal); M54.5 Low back pain
CPT/HCPCS: 99283

== ENCOUNTER 2018-04-09 11:58 | Emergency (ER) ==
[2018-04-09 12:09] VITALS: BP 156/95; TEMP 97.7; BMI 29.5
--- NOTE | 2018-04-09 14:22 | ED.PDOC ---
General ED Provider: Dr. VIKAS JAUREGUI Chief Complaint: Shoulder Pain/Injury Stated Complaint: Rt shoulder pain. States injured 2 weeks ago while lifting crates at work [employer]/Low back pain evaluated then. Afterwards noted he started having pain in shoulder/ Time Seen by Physician: 14:10 Mode of Arrival: Walk-In Information Source: Patient Exam Limitations: No limitations Nursing and Triage Documentation Reviewed and Agree: Yes Does patient meet sepsis criteria?: No System Inflammatory Response Syndrome: Not Applicable Sepsis Protocol: For patient's 13 years and over: Temp is 96.8 and below OR 101 and greater Pulse >90 BPM Resp >20/minute Acutely Altered Mental Status Are patient's symptoms suggestive of a new infection, such as: -Pneumonia -Skin, Soft Tissue -Endocarditis -UTI -Bone, Joint Infection -Implantable Device -Acute Abdominal Infection -Wound Infection -Meningitis -Blood Stream Catheter Infection -Unknown Musculoskeletal Complaint Exam - Shoulder Pain Complaint/Exam Mechanism of Injury: Reports: No known trauma Onset/Duration: 7-14 days Symptoms Are: Worse Timing: Intermittent Initial Severity: Moderate Current Severity: Moderate Location: Reports: Diffuse Character: Reports: Sharp, Aching, Spasmodic, Stiffness Alleviating: Reports: Rest Aggravating: Reports: Movement, Lifting, Flexion, Extension, Internal rotation Non-Orthopedic Risk Factors: Reports: None DVT Risk Factors: Reports: None Septic Arthritis Risk Factors: Reports: None Related Surgical History: Reports: None Shoulder Findings: Present: Swelling Limited Range of Motion: Present: Abduction, Adduction, Flexion, Extension, Internal rotation, External rotation, Rotator cuff muscles Differential Diagnoses: Rotator Cuff Injury, Strain Review of Systems - Review Of Systems Constitutional: Reports: No symptoms Eyes: Reports: No symptoms Ears, Nose, Mouth, Throat: Reports: No symptoms Respiratory: Reports: No symptoms Cardiac: Reports: No symptoms GI: Reports: No symptoms : Reports: No symptoms Musculoskeletal: Reports: No symptoms Skin: Reports: No symptoms Neurological: Reports: No symptoms Endocrine: Reports: No symptoms Hematologic/Lymphatic: Reports: No symptoms All Other Systems: Reviewed and Negative Past Medical History - Past Medical History Previously Healthy: Yes Endocrine: Reports: Dyslipidemia Cardiovascular: Reports: Hypertension Respiratory: Reports: None Hematological: Reports: None Gastrointestinal: Reports: GERD Genitourinary: Reports: None Neuro/Psych: Reports: Migraine, Depression Musculoskeletal: Reports: Arthritis, Back Pain Cancer: Reports: None - Surgical History General Surgical History: Reports: Orthopedic (Tear in right knee Repaired), Other (Pneumothorax , Ganglion cyst removal ) - Family History Family History: Reports: Unknown - Social History Smoking Status: Current every day smoker, Heavy tobacco smoker Hx Substance Use: No Alcohol Screening: None Physical Exam - Physical Exam Appearance: Ill-appearing Ill-appearing: None Pain Distress: Moderate Eyes: DELPHINE, EOMI, Conjunctiva clear ENT: Ears normal Neck: Supple Respiratory: Airway patent, Breath sounds clear, Breath sounds equal, Respirations nonlabored Cardiovascular: RRR, Pulses normal, No rub, No murmur GI/: Soft, Nontender, No masses, Bowel sounds normal, No Organomegaly Musculoskeletal: Limited ROM Skin: Warm, Dry, Normal color Neurological: Sensation intact, Motor intact, Reflexes intact, Cranial nerves intact, Alert, Oriented Psychiatric: Affect appropriate, Mood appropriate Interpretation - Radiology Interpretation Radiology Interpretation By: Radiologist Radiology Results: Negative (Rt Shoulder no acute problems) Critical Care Note - Critical Care Note Total Time (mins): 0 Course - Course Orders, Labs, Meds: Orders Category Date Time Status Shoulder immobilizer [ED SPLINT APPLICATION] .ONCE EMERGENCY 04/09/18 16:35 Ordered SHOULDER, RIGHT MIN 2V Stat RADS 04/09/18 14:39 Completed Vital Signs: Temp Pulse Resp BP Pulse Ox 04/09/18 12:03 97.7 F 68 16 156/95 H 98 Departure - Departure Time of Disposition: 16:15 Disposition: HOME SELF-CARE Discharge Problem: Right shoulder strain Discharge Problem: (Ruled Out): Left shoulder strain Condition: Good Pt referred to PMD for follow-up: Yes IPMP verified?: No Additional Instructions: Sling Take Ibuprofen 800 mg every 8 hrs for pain Ice No work until evaluated by PCP and MRI obtained Allergies/Adverse Reactions: Allergies divalproex sodium [From Depakote] Adverse Reaction (Verified 04/09/18 12:02) ketorolac [From Toradol] Adverse Reaction (Verified 04/09/18 12:02) Vomiting pentazocine lactate [From Talwin] Adverse Reaction (Verified 04/09/18 12:02) sumatriptan [From Imitrex] Adverse Reaction (Verified 04/09/18 12:02) sumatriptan succinate [From Imitrex] Adverse Reaction (Verified 04/09/18 12:02) varenicline tartrate [From Chantix] Adverse Reaction (Verified 04/09/18 12:02) Home Medications: Ambulatory Orders Clonidine HCl [Catapres] 0.1 mg PO DAILY 05/27/13 Fluoxetine HCl [Prozac] 40 mg PO TID 05/27/13 Omeprazole [Prilosec] 20 mg PO QDAC 05/27/13 Pravastatin Sodium 10 mg PO DAILY 05/02/16 Tamsulosin HCl [Flomax] 0.4 mg PO DAILY 05/02/16 Amlodipine Besylate [Norvasc] 2.5 mg PO BEDTIME 05/19/17 Ibuprofen 800 mg PO 2-3XD PRN 03/07/18 Disposition Discussed With: Patient
--- NOTE | 2018-04-09 15:39 | DI ---
Exam: Three views of the right shoulder. Comparison: CT chest performed 03/07/2018. Reason for exam: Pain. FINDINGS: No acute fracture or dislocation. The joint spaces appear well maintained. No unexplaine d calcific soft tissue densities or radiopaque retained foreign bodies. Impression: No acute fracture or malalignment is seen in the right shoulder.
== END 2018-04-09 16:45 | disposition home or self-care (01) ==
LOC: ED 11:58
DX: S46.911A Strain of unspecified muscle, fascia and tendon at shoulder and upper arm level, right arm, initial encounter (principal); X50.9XXA Other and unspecified overexertion or strenuous movements or postures, initial encounter
CPT/HCPCS: 99283

== ENCOUNTER 2018-04-26 19:01 | Emergency (ER) ==
[2018-04-26 19:11] VITALS: BP 167/107; TEMP 97.7; BMI 29.7
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
[2018-04-26] MEDS ORDERED: MORPHINE 4 MG/ML SYRINGE IVP STA (20:10)
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
[2018-04-26] MEDS ORDERED: MORPHINE 2 MG/ML SYRINGE IVP STA (21:20)
== END 2018-04-26 21:35 | disposition home or self-care (01) ==
LOC: ED 19:01
DX: S00.83XA Contusion of other part of head, initial encounter (principal); S59.911A Unspecified injury of right forearm, initial encounter; M54.2 Cervicalgia; M54.9 Dorsalgia, unspecified; M25.50 Pain in unspecified joint; M79.89 Other specified soft tissue disorders; R20.0 Anesthesia of skin; V59.9XXA Occupant (driver) (passenger) of pick-up truck or van injured in unspecified traffic accident, initial encounter; E78.5 Hyperlipidemia, unspecified; I10 Essential (primary) hypertension; F17.210 Nicotine dependence, cigarettes, uncomplicated
CPT/HCPCS: 96374; 96375; 99282; 99283

== ENCOUNTER 2018-06-28 18:23 | Emergency (ER) ==
[2018-06-28 18:23] VITALS: BMI 29.7
[2018-06-28 18:28] VITALS: BP 134/80; TEMP 100.1
[2018-06-28] MEDS ORDERED: SODIUM CHLORIDE 1,000 ML IV STA (18:36)
[2018-06-28] MEDS ORDERED: MORPHINE 2 MG/ML SYRINGE IVP STA (18:38)
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
[2018-06-28] MEDS ORDERED: MOTRIN PO STA (19:09)
[2018-06-28] MEDS ORDERED: TYLENOL PO STA (19:10)
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
== END 2018-06-28 21:23 | disposition home or self-care (01) ==
LOC: ED 18:23
DX: M46.86 Other specified inflammatory spondylopathies, lumbar region (principal); T07.XXXA Unspecified multiple injuries, initial encounter; R07.89 Other chest pain; R10.9 Unspecified abdominal pain; R50.9 Fever, unspecified; W28.XXXA Contact with powered lawn mower, initial encounter; I10 Essential (primary) hypertension; E78.5 Hyperlipidemia, unspecified; F17.210 Nicotine dependence, cigarettes, uncomplicated
CPT/HCPCS: 36415; 80053; 81001; 82150; 83690; 85025; 96361; 96374; 99283

== ENCOUNTER 2018-07-25 14:09 | Emergency (ER) ==
[2018-07-25 14:20] VITALS: BP 155/96; TEMP 96.6; BMI 30.9
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
[2018-07-25] MEDS ORDERED: ULTRAM PO STA (15:33)
== END 2018-07-25 15:55 | disposition home or self-care (01) ==
LOC: ED 14:09
DX: M25.561 Pain in right knee (principal); S80.01XA Contusion of right knee, initial encounter; Z72.0 Tobacco use; M17.11 Unilateral primary osteoarthritis, right knee
CPT/HCPCS: 99283

== ENCOUNTER 2018-09-02 11:25 | Emergency (ER) ==
[2018-09-02 11:25] VITALS: BMI 30.9
[2018-09-02 11:30] VITALS: BP 135/88; TEMP 97.9
[2018-09-02] MEDS ORDERED: SODIUM CHLORIDE 1,000 ML IV STA (11:55)
[2018-09-02] MEDS ORDERED: NORCO 10-325 PO STA (11:57)
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
--- NOTE | 2018-09-02 13:33 | CT ---
EXAM: CT lumbar spine without contrast HISTORY: Fall COMPARISON: 06/28/2018 TECHNIQUE: CT lumbar spine performed without intravenous contrast. Coronal and sagittal reformatted images obtained. FINDINGS: Vertebral bodies normal height. No fracture. Multilevel marginal osteophyte formation. Mild interv ertebral disc space narrowing L4-L5. Multilevel facet arthrosis. 2 mm anterolisthesis of L4 on L5 i s unchanged. T12-L1: No central canal or neural foraminal narrowing. L1-L2: No central canal or neural foraminal narrowing. L2-L3: No central canal or neural foraminal narrowing. L3-L4: Posterior disc osteophyte complex and facet arthrosis causing mild to moderate central canal a nd mild to moderate bilateral neural foraminal narrowing. L4-L5: Posterior disc osteophyte complex and facet arthrosis causing moderate to severe [place] l narrowing and moderate to severe bilateral neural foraminal narrowing. L5-S1: Posterior disc osteophyte complex and facet arthrosis causing moderate bilateral neural marcy inal narrowing. Please refer to separate report CT abdomen pelvis regarding findings in the abdomen pelvis. IMPRESSION: 1. No fracture. 2. Chronic discogenic degenerative disease and facet arthrosis.. Please see segmental analysis, not ing multilevel central canal and neural foraminal narrowing.
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
--- NOTE | 2018-09-02 13:56 | CT ---
EXAM: CT cervical spine without contrast HISTORY: Fall from a roof COMPARISON: 06/28/2018 TECHNIQUE: CT cervical spine performed without intravenous contrast. Coronal and sagittal reformatt ed images obtained. FINDINGS: The vertebral bodies normal height. No fracture. No subluxation. Multilevel marginal os teophyte formation with bulky anterior osteophytes. Multilevel intervertebral disc space narrowing, mild to moderate at C5-C6. Multilevel facet and uncovertebral hypertrophy. Degenerative changes cau se mild to moderate scattered mild and moderate central canal narrowing is present. - Six. Degenera tive changes cause mild to moderate bilateral neural foraminal narrowing that is greatest at C5-C6. Prevertebral soft tissues appear normal. IMPRESSION: 1. No fracture or subluxation. 2. Chronic discogenic degenerative disease and facet arthrosis.
[2018-09-02] MEDS ORDERED: MORPHINE 4 MG/ML SYRINGE IVP STA (14:26)
[2018-09-02] MEDS ORDERED: ZOFRAN 4 MG/2 ML IVP STA (14:26)
--- NOTE | 2018-09-02 15:28 | CT ---
EXAM: CT facial bones without contrast HISTORY: Fall COMPARISON: None TECHNIQUE: CT facial bones performed without intravenous contrast. Coronal and sagittal reformatted images obtained. FINDINGS: Mastoid air cells clear. Temporal mandibular joints normally aligned. Mandible intact. Zygomatic maxillary complexes intact. Orbital castañeda. No facial bone fracture. Nasal septum near mi dline. There is of polypoid mucosal thickening in the bilateral maxillary sinuses measuring up to 2. 8 cm on the right, likely mucous retention cysts. IMPRESSION: 1. No facial bone fracture. 2. Sinus mucosal changes as described.
--- NOTE | 2018-09-02 15:40 | CT ---
EXAM: CT thoracic spine. HISTORY: Back pain. Trauma. TECHNIQUE: CT thoracic spine without contrast. Multiplanar images were provided. FINDINGS: Compared to 06/28/2018. There is diffuse, at least mild degenerative endplate change, greater at the mid thoracic spine where there is slight exaggerated kyphosis. No acute fracture is obvious. Osteophytic spurring at inferi or endplate of T9 leads to left lateral recess stenosis which is at least mild in degree. There is m ild inferior posterior endplate spurring at T6 which leads to mild right lateral recess stenosis. Th ere are bridging anterior and lateral osteophytic spurs of the spine. IMPRESSION: 1. No acute fracture or subluxation. 2. Scattered degenerative changes of the spine similar to that previously seen.
--- NOTE | 2018-09-02 16:04 | ED.PDOC ---
General ED Provider: Dr. KINZA LESLIE Chief Complaint: Neck Injury Stated Complaint: neck, back pain after a fall from a roof 2 days prior Time Seen by Physician: 11:30 Mode of Arrival: Walk-In Information Source: Patient Nursing and Triage Documentation Reviewed and Agree: Yes Does patient meet sepsis criteria?: No System Inflammatory Response Syndrome: Not Applicable Sepsis Protocol: For patient's 13 years and over: Temp is 96.8 and below OR 101 and greater Pulse >90 BPM Resp >20/minute Acutely Altered Mental Status Are patient's symptoms suggestive of a new infection, such as: -Pneumonia -Skin, Soft Tissue -Endocarditis -UTI -Bone, Joint Infection -Implantable Device -Acute Abdominal Infection -Wound Infection -Meningitis -Blood Stream Catheter Infection -Unknown Trauma/Injury Complaint Exam - Trauma Complaint/Exam Location of Pain or Injury: Reports: Head, Face, Neck, Back Mechanism of Injury: Reports: Fall Onset/Duration: 2 days Symptoms Are: Still present Timing of Treatment: Immediate Initial Severity: Moderate Current Severity: Mild Aggravating: Reports: Movement Alleviating: Reports: Rest Associated Signs and Symptoms: Reports: Bruising (face ). Denies: LOC, Confusion, Memory loss, Lethargy, Vomiting, Bleeding, Swelling, Extremity disuse , Painful respiration, Hoarseness, Dysphagia, Hemoptysis, Significant blood loss Related History: Reports: Similar episode Penetrating Injury Risk Factors: Reports: None Nexus Low Risk Criteria: No evidence of intoxicat., No Altered LOC, No focal neuro deficit, No distracting injuries Glascow Coma Scale (see protocol): 15 Trauma Findings: Present: Neck tenderness, Neck spasm. Absent: [place] eyes, Hemotympanum, Nasal deformity, Dental tenderness, Dental injury, Dental malocclusion, SubQ Air, Crepitus, Airway obstructed, Trachea displaced, Labored respirations, Decreased breath sounds, Muffled heart sounds, Weak pulses, Absent pulses, Abdominal distention, Pelvic tenderness, Pelvic instability Review of Systems - Review Of Systems Constitutional: Reports: No symptoms Eyes: Reports: No symptoms Ears, Nose, Mouth, Throat: Reports: No symptoms Respiratory: Reports: No symptoms Cardiac: Reports: No symptoms GI: Reports: No symptoms : Reports: No symptoms Musculoskeletal: Reports: Back pain, Neck pain Skin: Reports: No symptoms Neurological: Reports: No symptoms Endocrine: Reports: No symptoms Hematologic/Lymphatic: Reports: No symptoms All Other Systems: Reviewed and Negative Past Medical History - Past Medical History Previously Healthy: Yes Endocrine: Reports: Dyslipidemia Cardiovascular: Reports: Hypertension Respiratory: Reports: None Hematological: Reports: None Gastrointestinal: Reports: GERD Genitourinary: Reports: None Neuro/Psych: Reports: Migraine, Depression Musculoskeletal: Reports: Arthritis, Back Pain Cancer: Reports: None - Surgical History General Surgical History: Reports: Orthopedic (Tear in right knee Repaired), Other (Pneumothorax , Ganglion cyst removal ) - Family History Family History: Reports: Unknown - Social History Smoking Status: Current every day smoker Hx Substance Use: No Alcohol Screening: None Physical Exam - Physical Exam Appearance: Well-appearing, No pain distress, Well-nourished Eyes: DELPHINE, EOMI, Conjunctiva clear ENT: Ears normal, Nose normal, Oropharynx normal Respiratory: Airway patent, Breath sounds clear, Breath sounds equal, Respirations nonlabored Cardiovascular: RRR, Pulses normal, No rub, No murmur GI/: Soft, Nontender, No masses, Bowel sounds normal, No Organomegaly Musculoskeletal: Normal strength, ROM intact, No edema, No calf tenderness Skin: Warm, Dry, Normal color Neurological: Sensation intact, Motor intact, Reflexes intact, Cranial nerves intact, Alert, Oriented Psychiatric: Affect appropriate, Mood appropriate Interpretation - Radiology Interpretation Radiology Interpretation By: Radiologist Radiology Results: No acute changes Exam Interpreted: CT Scan Critical Care Note - Critical Care Note Total Time (mins): 0 Course - Course Hematology/Chemistry: 09/02/18 11:53 09/02/18 12:03 Orders, Labs, Meds: Lab Review 09/02/18 09/02/18 09/02/18 11:53 12:03 12:25 WBC 8.76 RBC 3.89 L Hgb 12.8 L Hct 37.7 L MCV 96.9 H MCH 32.9 H MCHC 34.0 RDW Coeff of Elva 13.5 Plt Count 274 Immature Gran % (Auto) 0.2 Neut % (Auto) 49.1 Lymph % (Auto) 28.7 Collin % (Auto) 8.1 Eos % (Auto) 12.6 H Baso % (Auto) 1.3 Immature Gran # (Auto) 0.0 Neut # (Auto) 4.3 Lymph # (Auto) 2.5 Collin # (Auto) 0.7 Eos # (Auto) 1.1 H Baso # (Auto) 0.1 Sodium 141.4 Potassium 3.83 Chloride 107.6 H Carbon Dioxide 20.9 L Anion Gap 16.73 BUN 16.3 Creatinine 1.13 H Estimated GFR (MDRD) 68.00 BUN/Creatinine Ratio 14.42 Glucose 180.1 H Calcium 8.47 Total Bilirubin 0.33 AST 25.7 ALT 24.4 Alkaline Phosphatase 105.9 Total Protein 7.28 Albumin 4.18 Globulin 3.10 Albumin/Globulin Ratio 1.34 Urine Color Yellow Urine Clarity Clear Urine pH 6.0 Ur Specific [place] 1.020 Urine Protein Negative Urine Glucose (UA) Negative Urine Ketones Negative Urine Blood Negative Urine Nitrite Negative Urine Bilirubin Negative Urine Urobilinogen 0.2 Ur Leukocyte Esterase Negative Orders Category Date Time Status NPO REMINDER: IMAGING ONCE CARE 09/02/18 11:56 Completed NPO REMINDER: IMAGING ONCE CARE 09/02/18 11:56 Completed ED IV/MEDIPORT/POWERPORT .ONCE EMERGENCY 09/02/18 11:53 Active CBC W/ AUTO DIFF Stat LAB 09/02/18 11:53 Completed COMPREHENSIVE METABOLIC PANEL Stat LAB 09/02/18 12:03 Completed URINALYSIS C & S IF INDICATED Stat LAB 09/02/18 12:25 Completed 0.9 % Sodium Chloride [Saline Flush] MEDS 09/02/18 11:53 Active 1 syr IVF PRN PRN Hydrocodone Bit/Acetaminophen [[place] 10-325] MEDS 09/02/18 11:57 Discontinued 1 tab PO ONCE STA Morphine Sulfate [Morphine 4 mg/ml Syringe] MEDS 09/02/18 14:26 Discontinued 4 mg IVP ONCE STA Ondansetron HCl/Pf [Zofran 4 mg/2 ml] MEDS 09/02/18 14:26 Discontinued 4 mg IVP ONCE STA Sodium Chloride 0.9% [Sodium Chloride] 1,000 ml MEDS 09/02/18 11:55 Active IV 125 mls/hr CT ABDOMEN/PELVIS W CONTRAST Stat RADS 09/02/18 11:[address] CERVICAL SPINE W/O CONTRAST Stat RADS 09/02/18 11:[address] CHEST W/CONTRAST Stat RADS 09/02/18 11:[address] HEAD W/O CONTRAST Stat RADS 09/02/18 11:[address] LUMBAR SPINE W/O CONTRAST Stat RADS 09/02/18 11:[address] MAXILLOFACIAL W/O CONTRAST Stat RADS 09/02/18 14:[address] THORACIC SPINE W/O CONTRAST Stat RADS 09/02/18 14:25 Completed Medications Generic Name Dose Route Start Last Admin Trade Name Freq PRN Reason Stop Dose Admin Sodium Chloride 1,000 mls @ 125 mls/hr 09/02/18 11:55 09/02/18 12:18 Sodium Chloride IV 09/02/18 19:54 125 mls/hr .Q8H STA Administration Sodium Chloride 1 syr 09/02/18 11:53 09/02/18 12:18 Saline Flush IVF 1 syr PRN PRN Administration To flush IV Discontinued Medications Generic Name Dose Route Start Last Admin Trade Name Freq PRN Reason Stop Dose Admin Hydrocodone Bitart/Acetaminophen 1 tab 09/02/18 11:57 09/02/18 12:18 [place] 10-325 PO 09/02/18 11:58 1 tab ONCE STA Administration Morphine Sulfate 4 mg 09/02/18 14:26 09/02/18 14:49 Morphine 4 Mg/Ml Syringe IVP 09/02/18 14:27 4 mg ONCE STA Administration Ondansetron HCl 4 mg 09/02/18 14:26 09/02/18 14:49 Zofran 4 Mg/2 Ml IVP 09/02/18 14:27 4 mg ONCE STA Administration Vital Signs: Temp Pulse Resp BP Pulse Ox 09/02/18 11:25 97.9 F 71 18 135/88 92 L Departure - Departure Time of Disposition: 16:02 Disposition: HOME SELF-CARE Discharge Problem: Neck pain Low back pain Qualifiers: Chronicity: acute Back pain laterality: unspecified Sciatica presence: without sciatica Qualified Code(s): M54.5 - Low back pain Instructions: Neck Pain (ED), Cervical Strain (ED), Acute Low Back Pain (ED) Condition: Good Pt referred to PMD for follow-up: Yes IPMP verified?: No Additional Instructions: Please call your Family Physician as soon as possible to schedule a follow-up appointment.you have a low blood count make sure you have a colon test with a scope you dont want colon cancer to sneak on you Prescriptions: Hydrocodone Bit/Acetaminophen [[place] 10-325] 1 each PO Q6HR #10 tablet Allergies/Adverse Reactions: Allergies divalproex sodium [From Depakote] Adverse Reaction (Verified 06/28/18 18:31) ketorolac [From Toradol] Adverse Reaction (Verified 06/28/18 18:31) Vomiting pentazocine lactate [From Talwin] Adverse Reaction (Verified 06/28/18 18:31) sumatriptan [From Imitrex] Adverse Reaction (Verified 06/28/18 18:31) sumatriptan succinate [From Imitrex] Adverse Reaction (Verified 06/28/18 18:31) varenicline tartrate [From Chantix] Adverse Reaction (Verified 06/28/18 18:31) Home Medications: Ambulatory Orders Clonidine HCl [Catapres] 0.1 mg PO DAILY 05/27/13 Fluoxetine HCl [Prozac] 40 mg PO TID 05/27/13 Omeprazole [Prilosec] 20 mg PO QDAC 05/27/13 Pravastatin Sodium 10 mg PO DAILY 05/02/16 Tamsulosin HCl [Flomax] 0.4 mg PO DAILY 05/02/16 Amlodipine Besylate [Norvasc] 2.5 mg PO BEDTIME 05/19/17 Ibuprofen 800 mg PO 2-3XD PRN 03/07/18 Gabapentin [Neurontin] 600 mg PO DAILY 09/02/18 Hydrocodone Bit/Acetaminophen [[place] 10-325] 1 each PO Q6HR #10 tablet 09/02/18
== END 2018-09-02 16:14 | disposition home or self-care (01) ==
LOC: ED 11:25
DX: M54.2 Cervicalgia (principal); M54.5 Low back pain; R51 Headache; W17.89XA Other fall from one level to another, initial encounter; R79.89 Other specified abnormal findings of blood chemistry; F17.210 Nicotine dependence, cigarettes, uncomplicated; Z79.899 Other long term (current) drug therapy
CPT/HCPCS: 36415; 80053; 81001; 85025; 96361; 96374; 96375; 99283